=== PATIENT | female | born 1955 ===

== ENCOUNTER → 2025-01-15 | Day surgery (SDC) | payer OTHER ==
[2025-01-08 07:59] LABS: BASO % 0.7 % (0.1-1.2); EOS # 0.24 (0.04-0.54); EOS % 2.9 % (0.7-7.0); LYMPH # 2.57 (1.18-3.74); LYMPH % 31.6 % (19.3-53.1); MEAN PLATELET VOLUME 9.60 fl (9.4-12.4); MONO # 0.47 (0.24-0.82); MONO % 5.8 % (4.7-12.5); NEUT # 4.78 (1.56-6.13); NEUT % 58.8 % (34.0-71.1); RED CELL DISTRIBUTION WIDTH 14.9 % (11.6-14.4)
[2025-01-08 08:02] LABS: URINE APPEARANCE Clear; URINE BILIRRUBIN Negative (NEGATIVE); URINE BLOOD Negative; URINE COLOR Yellow; URINE KETONE Trace (NEGATIVE); URINE LEUKOCYTE Negative; URINE NITRATE Positive; URINE PROTEIN Negative (NEGATIVE); URINE UROBILINOGEN 0.2 E.U./dl
[2025-01-08 08:03] LABS: URINE EPITHELIAL CELLS 23.8 uL (0.0-38.8); URINE RBC 4.6 uL (0.0-20.8); URINE WBC 73.3 uL (0.0-23.2)
[2025-01-08 08:15] VITALS: BP 128/81
[2025-01-08 08:16] LABS: URINE BACTERIA > 9821.5 uL (0.0-1933); URINE CAST 0.14 uL (0.0-1.40); URINE GLUCOSE >=1000 MG/DL (NEGATIVE)
[2025-01-08 08:35] LABS: INR 0.96
[2025-01-08 08:50] LABS: ALT/SGPT 34.0 U/L (12-78); AST/SGOT 22.0 U/L (15-37); BILIRUBIN TOTAL 0.63 mg/dL (0.3-1.2); BUN CREA RATIO 15.0 (7.0-25.0); CREATININE SERUM 0.78 mg/dL (0.55-1.02); GFR 73.66; GLOBULINA 2.9 G/DL (2.4-3.5); GLUCOSE FASTING 118.0 mg/dL (65-100); OSMOLALITY SERUM 288.0 MOSM/KG (275-295)
[~2025-01-15] VITALS: Ht 167.6 cm; Wt 105.7 kg
[~2025-01-15] MED LIST: AZOR 10-20 MG1 EACH PO; BUPIVACAINE HCL/MPF 0.5% 30ML VIAL ONE; BUPROPION XL300 MG PO; CEFAZOLIN SODIUM 1,000 MG VIAL ONE; CLONAZEPAM2 MG PO; COZAAR25 MG PO; KETOROLAC TROMETHAMINE 30 MG VIAL ONE; LIDOCAINE HCL 1%/EPINEPHRINE 20ML VIAL IJ ONE; LIPITOR40 MG PO; ONDANSETRON HCL 2 MG/ML VIAL ONE; SUGAMMADEX SODIUM 200 MG/2 ML VIAL IV ONE; ZANAFLEX2 M1 PO; ZOLPIDEM TART6.25 MG PO
== END | disposition home or self-care (01) ==
LOC: ADM 01-08 07:15 → CIR.AMB 06:00
PROVIDERS: ATTEND Orthopaedic Surgery
DX: M75.122 Complete rotator cuff tear or rupture of left shoulder, not specified as traumatic (principal); M24.112 Other articular cartilage disorders, left shoulder